=== PATIENT | male | born 2000 | race Caucasian/White ===

== ENCOUNTER 2022-01-19 20:24 | Emergency (ER) | payer BC, SELFPAY ==
[2022-01-19 20:34] VITALS: BP 130/80; PULSE 80; RESP 14; TEMP 37.4; O2SAT 95; BMI 21.8
--- NOTE | 2022-01-19 21:03 | ED.HA ---
HPI - Headache General Chief Complaint: Headache/Migraine Stated Complaint: HEADACHE,DEHYDRATED Time Seen by Provider: 01/19/22 20:56 Source: patient and RN notes reviewed History of Present Illness HPI Narrative: 21-year-old man presenting to the emergency department. Drove himself here. He is having headache but the 1st thing he says to me is ?I will be honest, I think I'm having a full-blown anxiety attack?. Does have an underlying history of anxiety my review of records. Says he normally takes Ativan but not more than 1 or 2 doses a month. He is particularly worried that he has over-salted himself. He thinks probably ingested a tbsp of salt over the course of the day. 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 He has also been aggressively hydrating then since. He does report having clear urine just before arrival into the emergency department. Is not having abdominal pain. Denies swelling. Has no fever. Related Data Home Medications Medication Instructions Recorded Confirmed lorazepam 0.5 mg tablet mg 01/19/22 Allergies Allergy/AdvReac Type Severity Reaction Status Date / Time hydroxyzine AdvReac Mild felt Verified 01/19/22 20:35 weird Review of Systems Status of ROS: Reports: 6 or more systems reviewed and unremarkable except as noted in History and below [facility] Medical History Anxiety Fatigue Palpitations Panic attack Shortness of breath Shoulder pain Surgical History History of testicular surgery Social History Smoking Status: Former smoker What tobacco products do you use: cigarettes Smoking quit date/years: <= 15 years ago Do you use any of these nicotine containing products: None Second hand tobacco smoke exposure: No How often do you have a drink containing alcohol: monthly or less How many standard drinks containing alcohol do you have on a typical day: 1 or 2 How often do you have six or more drinks on one occasion: Never AUDIT-C Alcohol total score: 1 Non-prescribed substance use: denies use Exam Narrative: Exam Narrative: Speaking in a relaxed manner. Slim. Smaller stature. Has his arm up over his eyes often as this seems to be shielded from the light. Is pleasant. A little distracted maybe. Skin is warm and dry. Looks like he has got mild sunburn over his face and arms. Cranial nerves 2-12 intact. Is breathing easily. Lungs clear. Cardiovascular regular rate rhythm no MR Femi. Abdomen flat soft nontender. Moving all extremities without difficulty. There is no extremity edema. Const: Vital Signs, click to edit/add: Vital Signs - 24 hr 01/19/22 20:34 Temperature 99.3 F Pulse Rate [Pulse Oximeter] 80 Respiratory Rate 14 Blood Pressure [Le ft Upper Arm] 130/80 Pulse Oximetry 95 Course Course Hospital Course: discussed options for treatment. given 1mg oral lorazepam overall seemed less anxious. improved. chemistries discussed. seemed relieved. Vital Signs Vital signs: Initial Vital Signs Temperature 99.3 F 01/19/22 20:34 Temperature Source Temporal Artery Scan 01/19/22 20:34 Pulse Rate 80 01/19/22 20:34 Respiratory Rate 14 01/19/22 20:34 Blood Pressure 130/80 01/19/22 20:34 Blood Pressure Mean 96 01/19/22 20:34 Pulse Oximetry 95 01/19/22 20:34 Oxygen Delivery Method 01/19/22 20:34 Vital Signs Temperature 99.3 F 01/19/22 20:34 Pulse Rate 80 01/19/22 20:34 Respiratory Rate 14 01/19/22 20:34 Blood Pressure 130/80 01/19/22 20:34 Pulse Oximetry 95 01/19/22 20:34 Temperature 99.3 F 01/19/22 20:34 Pulse Rate 80 01/19/22 20:34 Respiratory Rate 14 01/19/22 20:34 Blood Pressure 130/80 01/19/22 20:34 Pulse Oximetry 95 01/19/22 20:34 MDM - Headache MDM Narrative Medical decision making narrative: as above Medical Records Attestation: I reviewed the patient's medical records. Lab Data Attestation: I reviewed the patient's lab results. Labs: Lab Results 01/19/22 Range/Units 21:22 Sodium 138 (135-149) mmol/L Potassium 3.6 (3.6-5.1) mmol/L Chloride 104 (96-114) mmol/L Carbon Dioxide 25 (20-32) mmol/L BUN 11 (5-24) mg/dL Creatinine 0.7 (0.5-1.5) mg/dL Estimated Creat Clear 143.37 Glucose 129 H (60-115) mg/dL Calcium 9.2 (8.4-10.6) mg/dL Discharge Plan Discharge Clinical Impression: Anxiety, Headache Patient Disposition: Home w/ Parent or Adult Condition: Improved Additional Instructions: You may have been dehydrated over the course of the day. Certainly exposure to the elements. Typical fluid ingestion should include 2-3 L of water daily. Adjust that if sweating a lot. Your chemistries look good and your kidneys appear to be functioning well. Prescriptions: No Action lorazepam 0.5 mg tablet 0RF Label Comments: TAKE 1 TABLET IF HAVING A PANIC ATTACK. OK TO TAKE SECOND TABLET IF PANIC DOES NOT IMPROVE IN 30 MIN Follow Up/Referrals: Provider,Not a Local [Primary Care Provider] - Stand Alone Forms: [employer] Info Instructions
[2022-01-19] MEDS: LORazepam 1 MG TABLET PO (21:20)
[2022-01-19 21:41] LABS: Chloride* 104 mmol/L (96-114); Potassium* 3.6 mmol/L (3.6-5.1); Sodium* 138 mmol/L (135-149)
[2022-01-19 21:43] LABS: Creatinine* 0.7 mg/dL (0.5-1.5); Est. Creatinine Clearance* 143.37; Estimated Glomerular Filt Rate 133.61
[2022-01-19 21:44] LABS: Blood Urea Nitrogen* 11 mg/dL (5-24); Calcium* 9.2 mg/dL (8.4-10.6); Carbon Dioxide* 25 mmol/L (20-32); Glucose* 129 mg/dL (60-115)
== END 2022-01-19 22:37 | disposition home or self-care (01) ==
PROVIDERS: Emergency Provider Family Medicine
DX: F41.9 Anxiety disorder, unspecified (principal); R51.9 Headache, unspecified
CPT/HCPCS: 36415; 80048; 99282; 99283; 99284; A9270

== ENCOUNTER 2022-10-20 12:03 | Emergency (ER) | payer BC, SELFPAY ==
[2022-10-20 12:11] VITALS: BP 133/81; RESP 18; TEMP 36.7; O2SAT 96; BMI 25.8
--- NOTE | 2022-10-20 12:27 | ED_ITS ---
HPI - General Adult General Chief complaint: Nausea/Vomiting Stated complaint: Food Poisoning Time Seen by Provider: 10/20/22 12:12 Source: patient Mode of arrival: ambulatory Limitations: no limitations History of Present Illness HPI narrative: 22-year-old male coming in today complaining of vomiting for the last approximately 20 hours. He states that it all started after he when out to eat at a chicken restaurant. He denies any diarrhea. He denies any fevers or chills. He denies any blood in his vomitus. States that he can not even keep down sips of water. Denies any recent illness. He states that he takes daily oxycodone for chronic pain, denies any other drug use including marijuana or alcohol. Related Data Home Medications Medication Instructions Recorded Confirmed lorazepam 0.5 mg tablet mg 01/19/22 Previous Rx's Medication Instructions Recorded ondansetron HCl 4 mg tablet 4 mg PO TID PRN nausea and 10/20/22 vomiting #10 tabs Allergies Allergy/AdvReac Type Severity Reaction Status Date / Time hydroxyzine AdvReac Mild felt Verified 01/19/22 20:35 weird Review of Systems Status of ROS: Reports: 10 or more systems reviewed and unremarkable except as noted in History and below [facility] Medical History Anxiety ?F41.9 - Anxiety disorder, unspecified (ICD-10) Fatigue ?R53.83 - Other fatigue (ICD-10) Palpitations ?R00.2 - Palpitations (ICD-10) Panic attack ?F41.0 - Panic disorder [episodic paroxysmal anxiety] (ICD-10) Shortness of breath ?R06.02 - Shortness of breath (ICD-10) Shoulder pain ?M25.519 - Pain in unspecified shoulder (ICD-10) Surgical History History of testicular surgery ?Z98.890 - Other specified postprocedural states (ICD-10) Social History Smoking Status: Former smoker What tobacco products do you use: cigarettes Smoking quit date/years: <= 15 years ago Do you use any of these nicotine containing products: None Second hand tobacco smoke exposure: No How often do you have a drink containing alcohol: monthly or less How many standard drinks containing alcohol do you have on a typical day: 1 or 2 How often do you have six or more drinks on one occasion: Never AUDIT-C Alcohol total score: 1 Non-prescribed substance use: denies use Exam Narrative: Exam Narrative: Well-nourished well-developed patient in no acute distress, although quite anxious. Alert and oriented x3. Answers questions appropriately. Mood and affect are appropriate. Thoughts are goal oriented and rational. No tangential or magical thinking noted. Patient speaks in full sentences without needing to catch his breath. HEENT: Normocephalic atraumatic. Pupils are equally round reactive to light. Extraocular muscles are intact. Conjunctivae are moist without any icterus noted. Moist mucous membranes. Posterior pharynx is normal. Neck is soft without any lymphadenopathy or thyromegaly. No masses are appreciated. Cardiovascular: Heart is regular rate and rhythm S1 and S2 are present without any murmurs. Lungs: Clear to auscultation bilaterally no wheezes rhonchi or rales are appreciated. Patient takes deep breaths without any discomfort. Abdomen: Soft and nontender nondistended with normal bowel sounds. No guarding or rebound. No masses or organomegaly appreciated. Extremities: Bilateral lower extremities are without edema. Normal DP and PT pulses. Skin: Well perfused without any obvious rashes. Const: Vital Signs, click to edit/add: Vital Signs - 24 hr 10/20/22 12:11 Temperature 98.1 F Respiratory Rate 18 Blood Pressure [Ri ght Upper Arm] 133/81 Pulse Oximetry 96 Oxygen Delivery Me thod Room Air Course Course Hospital Course: IV was started and patient received a L of normal saline and IV Zofran. Patient felt better after treatment. He was able to take sips of water without vomiting. Vital Signs Vital signs: Initial Vital Signs Temperature 98.1 F 10/20/22 12:11 Temperature Source Temporal Artery Scan 10/20/22 12:11 Respiratory Rate 18 10/20/22 12:11 Blood Pressure 133/81 10/20/22 12:11 Blood Pressure Mean 98 10/20/22 12:11 Blood Pressure Position Sitting 10/20/22 12:11 Pulse Oximetry 96 10/20/22 12:11 Oxygen Delivery Method Room Air 10/20/22 12:11 Vital Signs Temperature 98.1 F 10/20/22 12:11 Respiratory Rate 18 10/20/22 12:11 Blood Pressure 133/81 10/20/22 12:11 Pulse Oximetry 96 10/20/22 12:11 Oxygen Delivery Method Room Air 10/20/22 12:11 Temperature 98.1 F 10/20/22 12:11 Respiratory Rate 18 10/20/22 12:11 Blood Pressure 133/81 10/20/22 12:11 Pulse Oximetry 96 10/20/22 12:11 Oxygen Delivery Method Room Air 10/20/22 12:11 Medical Decision Making MDM Narrative Medical decision making narrative: Vomiting. [facility] Return if he is getting worse. Discharge Plan Discharge Clinical Impression: Vomiting Patient Disposition: Home, Self-Care Condition: Improved Additional Instructions: Take small sips of water frequently throughout the day. You may continue to vomit for several more hours. If you feel like you are getting worse, return for evaluation. Prescriptions: New ondansetron HCl 4 mg tablet 4 mg PO TID PRN (Reason: nausea and vomiting) Qty: 10 0RF No Action lorazepam 0.5 mg tablet Patient Comments: TAKE 1 TABLET IF HAVING A PANIC ATTACK. OK TO TAKE SECOND TABLET IF PANIC DOES NOT IMPROVE IN 30 MIN Follow Up/Referrals: Provider,Not a Local [Primary Care Provider] - Stand Alone Forms: [employer] Info Instructions
== END 2022-10-20 14:04 | disposition home or self-care (01) ==
PROVIDERS: Emergency Provider Family Medicine
DX: R11.10 Vomiting, unspecified (principal)
CPT/HCPCS: 99283; 99284